=== PATIENT | male | born 1990 | race Two or more races ===

== ENCOUNTER 2020-10-30 21:31 | Emergency (ER) | payer MEDICAID ==
[~2020-10-30] VITALS: Ht 167.6 cm; Wt 70.0 kg
[2020-10-30 21:38] VITALS: BP 113/76
== END 2020-10-31 03:35 | disposition left against medical advice (07) ==
LOC: ER 21:32
DX: M79.676 Pain in unspecified toe(s) (principal); Z53.21 Procedure and treatment not carried out due to patient leaving prior to being seen by health care provider